=== PATIENT | female | born 1990 | race American Indian/Alaskan Native ===

== ENCOUNTER 2017-02-24 17:03 | Inpatient (IN) | payer MEDICAID ==
[2017-02-24] MEDS ORDERED: SUBLIMAZE IV PRN (17:12)
[2017-02-24] MEDS ORDERED: BRETHINE SUB-Q PRN (17:33)
[2017-02-24] MEDS ORDERED: BRETHINE IVP PRN (17:33)
[2017-02-24] MEDS ORDERED: XYLOCAINE 2% INFILTRATI ONE (17:33)
[2017-02-24] MEDS ORDERED: ePHEDrine SULFATE IV PRN (17:33)
--- NOTE | 2017-02-24 17:40 | History and Physical Report ---
History of Present Illness Date of examination: 02/24/17 Date of admission: 02/24/17 17:04 Chief complaint: Labor History of present illness: Pt is a 26yo BF EDC 02/21/17; EGA 40 3/7 weeks presents to L&D complaining of RUC's q 3-4 mins and Cx 8/100/V/-1. She received care at [facility] since 26 weeks and course has been unremarkable. records are available and GBS Negative. 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 History: herpes Social history: no significant social history, single - Obstetrical History Expected Date of Delivery: 02/21/17 Actual Gestation: 40 Week(s) 3 Day(s) Medications and Allergies Allergies Allergy/AdvReac Type Severity Reaction Status Date / Time No Known Allergies Allergy Unverified 02/24/17 17:10 Active Meds: Active Medications Ephedrine Sulfate (Ephedrine Sulfate) 10 mg IV Q2M PRN PRN Reason: Hypotension Fentanyl (Sublimaze) 100 mcg IV Q2H PRN PRN Reason: Labor Pain Lactated Ringer's (Lactated Ringers) 1,000 mls @ 125 mls/hr IV DIRECT WILLIAM Last Admin: 02/24/17 17:27 Dose: 125 mls/hr Oxytocin/Sodium Chloride (Pitocin/Ns 20 Unit/1000ml Drip) 20 units in 1,000 mls @ 0 mls/hr IV DIRECT WILLIAM PRN Reason: As Directed Review of Systems All systems: negative - Physical Exam Breasts: Positive: deferred Cardiovascular: Regular rate Lungs: Positive: Clear to auscultation Abdomen: Positive: normal appearance Genitourinary (Female): Positive: normal external genitalia Uterus: Positive: enlarged Extremities: Positive: normal - Obstetrical FHR: category 1 Uterine Contraction Monitor Mode: External Cervical Dilatation: 8 Cervical Effacement Percentage: 100 station: -1 Uterine Contraction Pattern: Regular Uterine Tone Measurement Phase: Contraction Uterine Contraction Intensity: Strong/Firm Results Result Diagrams: 02/24/17 17:15 All other labs normal. Assessment and Plan - Patient Problems (1) 40 weeks gestation of Onset Date: 02/24/17 Current Visit: Yes Status: Acute Plan to address problem: A: IUP @ 40 0/7 weeks in labor P: Admit to L&D for expectant vaginal delivery
[2017-02-24 17:43] LABS: Hematocrit 40.1 % (30.3-42.9); Hemoglobin 13.1 gm/dl (10.1-14.3); Mean Corpuscular HGB Conc 33 % (30-34); Mean Corpuscular Hemoglobin 29 pg (28-32); Mean Corpuscular Volume 89 fl (79-97); Platelet Count 287 K/mm3 (140-440); Red Blood Count 4.52 M/mm3 (3.65-5.03); Red Cell Distribution Width 13.1 % (13.2-15.2)
[2017-02-24] MEDS ORDERED: PITOCin/NS 30 UNIT/500ML 30 UNITS/500 ML BAG IV SCH (18:00)
[2017-02-24] MEDS ORDERED: PITOCin/NS 20 UNIT/1000ML DRIP 20 UNITS/1,000 ML BAG IV SCH ×3 (18:00→19:00)
[2017-02-24] MEDS ORDERED: LACTATED RINGERS 1,000 ML IV SCH ×2 (18:00)
--- NOTE | 2017-02-24 18:03 | Procedure Note ---
OB Delivery Note - Delivery Date of Delivery: 02/24/17 Surgeon: YRN CHING Estimated blood loss: 200cc - Vaginal Delivery presentation: vertex Delivery position: OA Intrapartum events: none Delivery induction: none Delivery augmentation: rupture of membranes Delivery monitor: external FHT, external uterine Route of delivery: Delivery placenta: spontaneous Delivery cord: 3 umbilical vessels Episiotomy: none Delivery laceration: none Anesthesia: none Delivery comments: Infant delivered OA and placed on Mom's chest for [id number] bonding and delayed cord clamping. - A at 1 minute: 8 at 5 minutes: 9 Infant Gender: Male (3087gms)
[2017-02-24] MEDS ORDERED: BENADRYL PO PRN (18:06)
[2017-02-24] MEDS ORDERED: TYLENOL PO PRN (18:06)
[2017-02-24] MEDS ORDERED: DULCOLAX PR PRN (18:06)
[2017-02-24] MEDS ORDERED: PHENERGAN PO PRN (18:06)
[2017-02-24] MEDS ORDERED: NORCO 5/325 PO PRN (18:06)
[2017-02-24] MEDS ORDERED: TUCKS PAD TP PRN (18:06)
[2017-02-24] MEDS ORDERED: PHENERGAN PR PRN (18:06)
[2017-02-24] MEDS ORDERED: MILK OF MAGNESIA PO PRN (18:06)
[2017-02-24] MEDS ORDERED: LANSINOH TP PRN (18:06)
[2017-02-24] MEDS ORDERED: ZOFRAN IV PRN (18:06)
[2017-02-24] MEDS ORDERED: SODIUM CHLORIDE FLUSH SYRINGE 10 ML IV NR (19:00)
[2017-02-24] MEDS: MOTRIN PO SCH (20:40)
[2017-02-24] MEDS ORDERED: MINERAL OIL PO PRN (22:00)
[2017-02-25] MEDS: MOTRIN PO SCH ×4 (02:20→23:59)
[2017-02-25 05:02] LABS: Hematocrit 33.8 % (30.3-42.9); Hemoglobin 11.3 gm/dl (10.1-14.3)
--- NOTE | 2017-02-25 08:41 | Progress Note ---
Assessment and Plan A: PPD 1 - Stable P: Continue routine PP orders Start depo provera 02/26/17 for PP contraception Discharge to home 02/26/17 Follow up in 6 weeks for PP exam Subjective - Subjective Date of service: 02/25/17 Principal diagnosis: Normal Spontanoeus Vaginal Delivery Patient reports: appetite normal, voiding normally, pain well controlled, ambulating normally : doing well, bottle feeding Objective - Vital Signs Latest vital signs: Vital Signs Temp Pulse Resp BP BP Pulse Ox 02/25/17 07:38 71 98 02/25/17 07:35 98.3 F 84 18 105/63 98 02/25/17 07:34 78 98 02/25/17 04:45 98.2 F 97 H 20 112/58 97 02/25/17 00:00 98.3 F 92 H 20 123/57 99 02/24/17 19:30 91 H 100 02/24/17 19:25 78 99 02/24/17 19:21 93 H 121/69 02/24/17 19:20 87 99 02/24/17 19:15 78 98 02/24/17 19:10 91 H 99 02/24/17 19:06 78 126/56 02/24/17 19:05 81 96 02/24/17 19:00 83 100 02/24/17 18:55 81 100 02/24/17 18:51 78 121/60 02/24/17 18:50 78 100 02/24/17 18:44 76 100 02/24/17 18:40 73 96 02/24/17 18:39 73 94 02/24/17 18:37 74 129/66 02/24/17 18:35 71 100 02/24/17 18:30 78 100 02/24/17 18:26 80 94 02/24/17 18:25 82 100 02/24/17 18:21 76 116/59 02/24/17 18:20 73 100 02/24/17 18:15 81 100 02/24/17 18:10 86 100 02/24/17 18:09 91 H 125/59 02/24/17 18:05 98.2 F 83 18 125/59 100 02/24/17 17:44 78 114/59 Intake and Output 02/24/17 02/25/17 02/25/17 23:59 07:59 15:59 Intake Total 240 1600 Output Total 600 400 Balance -360 1200 Intake: IV 1000 PITOCin/NS 20 UNIT/1000ML 1000 DRIP 20 units In 1,000 ml @ As Directed IV DIRECT [facility] Rx#:[id number] Oral 240 600 Output: Urine 600 400 Void 600 400 Other: Total, Intake Amount 240 240 Total, Output Amount 600 400 # Voids Void 1 Weight 82.1 kg Estimated Blood Loss 200 - Exam Cardiovascular: Present: Regular rate, Normal S1, Normal S2, No murmurs Lungs: Present: Clear to auscultation, Normal air movement Abdomen: Present: normal appearance, soft Vulva: both: normal Uterus: Present: normal, firm, fundal height below umbilicus Extremities: Present: normal Deep Tendon Reflex Grade: Normal +2 - Labs Labs: Abnormal lab results 02/24/17 Range/Units 17:15 WBC 11.4 H (4.5-11.0) K/mm3 RDW 13.1 L (13.2-15.2) %
--- NOTE | 2017-02-25 08:47 | Discharge Summary ---
Providers - Providers Date of Admission: 02/24/17 17:04 Date of discharge: 02/26/17 Attending physician: ARIEL MEJIA MD Primary care physician: ARIEL MEJIA MD Hospitalization Reason for admission: active labor, IUP at term Delivery: Episiotomy: none Laceration: none Other procedures: none complications: none Discharge diagnosis: IUP at term delivered [place] baby: male Hospital course: Uncomplicated Condition at discharge: Stable Disposition: MI-01 TO HOME OR SELFCARE - Discharge Diagnoses (1) Normal spontaneous vaginal delivery Status: Acute Plan - Provider Discharge Summary Activity: routine, no sex for 6 weeks, no heavy lifting 4 weeks, no strenuous exercise Diet: routine Instructions: routine Additional instructions: [] Smoking cessation referral if applicable(refer to patient education folder for contact #) [] Refer to [facility] Booklet Call your doctor immediately for: * Fever > 100.5 * Heavy vaginal bleeding ( >1 pad per hour) * Severe persistent headache * Shortness of breath * Reddened, hot, painful area to leg or breast * Drainage or odor from incision. * Keep incision clean and dry at all times and follow doctor's instructions regarding bathing/showering - Follow up plan Follow up: ARIEL MEJIA MD [Primary Care Provider] - 6 Weeks (Follow up in 6 weeks for PP exam )
[2017-02-25] MEDS: COLACE PO SCH ×2 (09:39→21:50)
[2017-02-25] MEDS: FEOSOL PO SCH ×2 (09:40→21:49)
[2017-02-25] MEDS ORDERED: PRENATAL VITAMIN PO SCH (10:00)
[2017-02-25] MEDS ORDERED: M-M-R II VACCINE SUB-Q ONE (18:06)
[2017-02-26] MEDS: MOTRIN PO SCH ×2 (05:35→12:46)
[2017-02-26] MEDS ORDERED: DEPO-PROVERA (CONTRACEPTION) IM NR ×2 (09:00→13:00)
[2017-02-26 09:11] VITALS: BP 106/62
[2017-02-26] MEDS: FEOSOL PO SCH (12:47)
[2017-02-26] MEDS: COLACE PO SCH (12:48)
== END 2017-02-26 19:06 | disposition home or self-care (01) | DRG 775 ==
LOC: TRG 17:03 → LD 17:04 → TRG 17:04 → OB 20:23
PROVIDERS: ADMIT Obstetrics & Gynecology; ATTEND Obstetrics & Gynecology
PROC: 10E0XZZ Delivery of Products of Conception, External Approach (ICD-10-PCS; principal; 2017-02-24)
PROC: 3E0234Z Introduction of Serum, Toxoid and Vaccine into Muscle, Percutaneous Approach (ICD-10-PCS; 2017-02-25)
DX: O80 Encounter for full-term uncomplicated delivery (principal); Z3A.40 40 weeks gestation of pregnancy; Z37.0 Single live birth; Z23 Encounter for immunization
CPT/HCPCS: 36415; 85014; 85018; 85027; 86592; 86850; 86900; 86901; J1050; J2590; J3010; J7120

== ENCOUNTER 2018-12-18 16:18 | Inpatient (IN) | payer OTHER ==
[2018-12-18] MEDS: LACTATED RINGERS 1,000 ML IV SCH ×2 (16:39→20:21)
[2018-12-18] MEDS ORDERED: SUBLIMAZE IV PRN (17:24)
[2018-12-18] MEDS ORDERED: BRETHINE SUB-Q PRN (17:24)
[2018-12-18] MEDS ORDERED: XYLOCAINE 2% INFILTRATI ONE (17:24)
--- NOTE | 2018-12-18 17:34 | History and Physical Report ---
History of Present Illness Date of examination: 12/18/18 Date of admission: 12/18/18 Chief complaint: Contractions History of present illness: 28 year old female presents to L&D in labor. Patient reports contractions started at 7 AM today. Denies LOF or VB. Reports active movement. Patient received care at [facility] and records are available. LMP 04/17/18. EDC 12/12/18 (based on US). 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 labs are as follows: O+, antibody screen negative, rubella immune, hepatitis B surface antigen negative, HIV negative, varicella immune, RPR nonreactive, HSV 2 positive, hemoglobin electrophoresis normal, gonorrhea negative, chlamydia negative, trichomonas negative, quad screen negative, 1 hour sugar test 134, GBS negative. 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 denies: abnormal PAP smear, chlamydia, gonorrhea, hepatitis B, hepatitis C, HIV, syphilis, trichomonas Family/Genetic History: none Social history: single, lives with family, full code. denies: smoking, alcohol abuse, prescription drug abuse, IV drug use - Obstetrical History Expected Date of Delivery: 12/12/18 Actual Gestation: 40 Week(s) 6 Day(s) : 3 Para: 2 Hx # Term Pregnancies: 2 Number of Pregnancies: 0 Spontaneous Abortions: 0 Induced : 0 Number of Living Children: 2 Medications and Allergies Allergies Allergy/AdvReac Type Severity Reaction Status Date / Time No Known Allergies Allergy Verified 12/18/18 16:23 Home Medications Medication Instructions Recorded Confirmed Last Taken Type No Known Home Medications [No 02/25/17 02/25/17 Unknown History Reported Home Medications] Active Meds: Active Medications Ephedrine Sulfate (Ephedrine Sulfate) 10 mg IV Q2M PRN PRN Reason: Hypotension Fentanyl (Sublimaze) 100 mcg IV Q2H PRN PRN Reason: Labor Pain Lactated Ringer's (Lactated Ringers) 1,000 mls @ 150 mls/hr IV DIRECT WILLIAM Last Admin: 12/18/18 16:39 Dose: 150 mls/hr Documented by: Oxytocin/Sodium Chloride (Pitocin/Ns 20 Unit/1000ml Drip) 20 units in 1,000 mls @ 125 mls/hr IV DIRECT WILLIAM Lactated Ringer's (Lactated Ringers) 1,000 mls @ 125 mls/hr IV DIRECT WILLIAM Lidocaine (Xylocaine 2%) 20 ml INFILTRATI ONCE ONE Stop: 12/18/18 17:25 Terbutaline Sulfate (Brethine) 0.25 mg SUB-Q ONCE PRN PRN Reason: Hyperstimulation/Hypertonicity Valacyclovir HCl (Valtrex) 500 mg PO BID WILLIAM Review of Systems All systems: negative (contractions) - Vital Signs Vital signs: Vital Signs Pulse BP 93 H 140/69 12/18/18 16:41 12/18/18 16:41 Temp Pulse Resp BP Pulse Ox 97.9 F 72 18 140/69 98 12/18/18 16:42 12/18/18 16:49 12/18/18 16:42 12/18/18 16:41 12/18/18 16:49 - Physical Exam Cardiovascular: Regular rate, Normal S1, Normal S2 Lungs: Positive: Clear to auscultation Abdomen: Positive: normal appearance, soft. Negative: distention, tenderness, guarding, rigidity Genitourinary (Female): Positive: normal external genitalia, normal perenium. Negative: perineal/vulvar lesions (no lesions seen on careful exam with bright light upon admission) Vagina: Positive: normal moisture Uterus: Positive: enlarged (S>D (US ordered for EFW)) Anus/Rectum: Positive: normal perianal skin Extremities: Positive: normal, edema (mild pedal edema). Negative: tenderness - Obstetrical FHR: category 2 FHR comments: Brief variable FHR decelerations with rapid return to baseline; normal baseline rate and moderate variability. Uterine Contraction Monitor Mode: External Cervical Dilatation: 5 Cervical Effacement Percentage: 80 station: -4 Uterine Contraction Pattern: Regular Uterine Contraction Intensity: Moderate Results Result Diagrams: 12/18/18 16:30 12/18/18 16:30 All other labs normal. Assessment and Plan A: at 40 weeks, 6 days gestation. Active labor. GBS negative. HSV 2 positive serology with no lesions or prodromal symptoms, on Valtrex suppression. P: Admit. Continuous EFM. Continue Valtrex for HSV suppression. EFW by US.
[2018-12-18 17:51] LABS: Hematocrit 35.8 % (30.3-42.9); Hemoglobin 11.9 gm/dl (10.1-14.3); Mean Corpuscular HGB Conc 33 % (30-34); Mean Corpuscular Volume 87 fl (79-97); Platelet Count 235 K/mm3 (140-440); Red Blood Count 4.14 M/mm3 (3.65-5.03); Red Cell Distribution Width 14.1 % (13.2-15.2)
[2018-12-18 18:13] LABS: Alanine Aminotransferase 11 units/L (7-56); BUN/Creatinine Ratio 15; Blood Urea Nitrogen 9 mg/dL (7-17); Calcium 8.7 mg/dL (8.4-10.2); Hemolysis Index 4
[2018-12-18 18:45] LABS: Uric Acid 4.9 mg/dL (3.5-7.6)
--- NOTE | 2018-12-18 20:10 | Ultrasound Report ---
ULTRASOUND OBSTETRIC INDICATION / CLINICAL INFORMATION: Estimated weight. TECHNIQUE: Transabdominal. COMPARISON: None available. FINDINGS: There is a single intrauterine . Biparietal Diameter = 9.12 cm = 37 weeks, 0 day(s). Head Circumference = 32.4 cm = 36 weeks, 5 day(s). Abdominal Circumference = 33.3 cm = 37 weeks, 1 day(s). Femur Length = 7.54 cm = 38 weeks, 4 day(s). Average Ultrasound Age (AUA) = 37 weeks, 2 day(s). Heart Rate: 154 beats per minute. Estimated Weight in grams (if calculated): 3206 Estimated Weight Growth Percentile (if calculated): Position: cephalic. Cervix: closed. Length in cm (if measured): Placenta: Fundal and free of the os. Amniotic Fluid Index (ESPERANZA) in cm (if calculated): 8.7. Maternal Adnexa: No significant abnormality. IMPRESSION: 1. Single, living intrauterine with estimated sonographic age of 37 weeks, 2 day(s). 2. No significant sonographic abnormality. Signer Name: Jude Guaman MD Signed: 12/18/2018 8:06 PM Workstation Name: [id number]
[2018-12-18] MEDS ORDERED: MARCAINE 0.25% INFILTRATI ONE (20:17)
[2018-12-18] MEDS ORDERED: NALOXONE IV PRN (20:20)
--- NOTE | 2018-12-18 20:22 | Anesthesia Consultation ---
Anesthesia Consult and Med Hx Date of service: 12/18/18 - Airway Anesthetic Teeth Evaluation: Good ROM Head & Neck: Adequate Mental/Hyoid Distance: Adequate Mallampati Class: Class II Intubation Access Assessment: Probably Good - Pulmonary Exam CTA: Yes - Cardiac Exam Cardiac Exam: RRR - Pre-Operative Health Status ASA Pre-Surgery Classification: ASA2 Proposed Anesthetic Plan: Epidural - Pulmonary Hx Smoking: No Hx Asthma: No Hx Respiratory Symptoms: No SOB: No COPD: No Home Oxygen Therapy: No Hx Pneumonia: No Hx Sleep Apnea: No - Cardiovascular System Hx Hypertension: No Hx Coronary Artery Disease: No Hx Heart Attack/AMI: No Hx Angina: No Hx Percutaneous Transluminal Coronary Angioplasty (PTCA): No Hx Cardia Arrhythmia: No Hx Pacemaker: No Hx Internal Defibrillator: No Hx Valvular Heart Disease: No Hx Heart Murmur: No Hx Peripheral Vascular Disease: No - Central Nervous System Hx Neuromuscular Disorder: No Hx Seizures: No CVA: No Hx Back Pain: No Hx Psychiatric Problems: No - Gastrointestinal Hx Ulcer: No Hx Gastroesophageal Reflux Disease: No - Endocrine Hx Renal Disease: No Hx End Stage Renal Disease: No Hx Cirrhosis: No Hx Liver Disease: No Hx Insulin Dependent Diabetes: No Hx Non-Insulin Dependent Diabetes: No Hx Thyroid Disease: No Hx Hypothyroidism: No Hx Hyperthyroidism: No - Hematic Hx Anemia: No Hx Sickle Cell Disease: No - Other Systems Hx Alcohol Use: No Hx Substance Use: No Hx Cancer: No Hx Obesity: Yes
[2018-12-18] MEDS ORDERED: ZOFRAN IV ONE (21:00)
[2018-12-18] MEDS: fentaNYL-BUPIV 2 MCG/ML-0.125% 200 MCG/100 ML BAG EPIDURAL SCH (22:14)
[2018-12-18] MEDS: VALTREX PO SCH (22:30)
--- NOTE | 2018-12-18 22:32 | Event Note ---
Date: 12/18/18 SVE /-3. Category 1 heart rate tracing. Will augment labor with Pitocin. Discussed with patient Pitocin augmentation of labor. Patient consented to Pitocin augmentation of labor.
[2018-12-18] MEDS ORDERED: PITOCin/NS 30 UNIT/500ML 30 UNITS/500 ML BAG IV SCH (23:00)
[2018-12-19] MEDS ORDERED: ZOFRAN IV ONE (01:59)
[2018-12-19] MEDS ORDERED: ZOFRAN ONE ×3 (02:02→14:42)
[2018-12-19] MEDS: LACTATED RINGERS 1,000 ML IV SCH ×2 (03:14→11:10)
--- NOTE | 2018-12-19 05:35 | Event Note ---
Date: 12/19/18 SVE 2.
[2018-12-19] MEDS: fentaNYL-BUPIV 2 MCG/ML-0.125% 200 MCG/100 ML BAG EPIDURAL SCH (06:16)
--- NOTE | 2018-12-19 07:57 | Event Note ---
Date: 12/19/18 SVE 7.5/90/-1. AROM with moderate amount of clear fluid to augment labor. Category 1 heart rate tracing. Vital signs stable.
[2018-12-19] MEDS ORDERED: ZOFRAN IV NR (08:40)
[2018-12-19] MEDS: VALTREX PO SCH (10:08)
[2018-12-19 10:32] LABS: Bacteria,Urine 1+ /HPF (Negative); Bilirubin,Urine NEG (Negative); Blood,Urine MOD (Negative); Color,Urine Amber (Yellow); Mucus,Urine 3+ /HPF
[2018-12-19] MEDS: PITOCin/NS 20 UNIT/1000ML DRIP 20 UNITS/1,000 ML BAG IV SCH ×2 (12:03→13:19)
[2018-12-19] MEDS ORDERED: ZOFRAN IV PRN (13:00)
[2018-12-19] MEDS ORDERED: LANSINOH TP PRN (13:58)
[2018-12-19] MEDS ORDERED: DERMOPLAST TP PRN (13:58)
[2018-12-19] MEDS ORDERED: MILK OF MAGNESIA PO PRN (13:58)
[2018-12-19] MEDS ORDERED: SODIUM CHLORIDE FLUSH SYRINGE 10 ML IV NR (14:00)
--- NOTE | 2018-12-19 14:19 | Procedure Note ---
OB Delivery Note - Delivery Date of Delivery: 12/19/18 Surgeon: JANAE HIGGINBOTHAM Estimated blood loss: 500cc - Vaginal Delivery presentation: vertex Delivery position: OA Intrapartum events: hemorrhage (manual removal of placenta, bleeding from episiotomy), shoulder dystocia Delivery augmentation: rupture of membranes, pitocin Delivery monitor: external FHT, external uterine Route of delivery: Delivery placenta: manual Delivery cord: 3 umbilical vessels Episiotomy: midline Delivery laceration: 2nd degree Delivery repair: vicryl Anesthesia: epidural Delivery comments: Spontaneous vaginal delivery at 11:43 of liveborn female infant weighing 8 lb. 14 oz. over second degree midline episiotomy with apgars of 6/9. Patient pushed for 3 contractions and delivered head; turtle sign noted upon delivery of head. Right anterior shoulder dystocia noted, taking 3 minutes to resolve. 2nd degree midline episiotomy cut. Kodak maneuver, suprapubic pressure, rotation of shoulders were performed and attempt was also made to deliver posterior arm. Posterior arm was stretched out fully alongside fetus and was not possible to deliver. Delivery was accomplished with combination of Kodak maneuver, suprapubic pressure, and rotation of shoulders to the oblique. 3 vessel cord immediately double clamped and cut after and baby taken to radiant warmer and NICU team for evaluation. Spontaneous cry and respirations. Baby moving all extremities well. Cord blood obained. Gush of blood noted with separation of xavier centa; manual removal of placenta performed at 12:00 due to the bleeding noted at time of placental separation. Fundus massaged; Pitocin to IV fluids. Fundus firmed and was noted to be midline. EBL 500 cc. 2nd degree midline episiotomy repaired with 2-0 and 3-0 vicryl in usual sterile fashion. Vaginal laceration repaired with 2-0 vicryl. No other lacerations noted. Sponge count correct; sharp count correct. Vaginal sweep negative. Mother and baby stable in birthing room. Stat H&H ordered due to total estimated blood loss of 500 cc. Antibiotic ordered due to manual removal of placenta.
[2018-12-19 15:28] LABS: Hematocrit 34.6 % (30.3-42.9); Hemoglobin 11.1 gm/dl (10.1-14.3)
[2018-12-19] MEDS: CLEOCIN 900 MG/50 mL 900 MG/50 ML BAG IV SCH ×2 (15:56→22:11)
[2018-12-19] MEDS: PRENATAL VITAMIN PO SCH (16:11)
[2018-12-19] MEDS: IBUPROFEN PO SCH ×2 (16:11→19:53)
[2018-12-19] MEDS: TUCKS PAD TP PRN (19:53)
[2018-12-19] MEDS: COLACE PO SCH (22:11)
[2018-12-19] MEDS: FEOSOL PO SCH (22:11)
[2018-12-19] MEDS: NORCO 5/325 PO PRN (22:11)
[2018-12-20] MEDS: IBUPROFEN PO SCH ×4 (02:17→21:02)
[2018-12-20] MEDS: NORCO 5/325 PO PRN ×3 (06:33→18:34)
[2018-12-20] MEDS: CLEOCIN 900 MG/50 mL 900 MG/50 ML BAG IV SCH (06:35)
[2018-12-20 06:38] LABS: Hematocrit 25.3 % (30.3-42.9); Hemoglobin 8.5 gm/dl (10.1-14.3)
[2018-12-20] MEDS: FEOSOL PO SCH ×2 (10:26→21:02)
[2018-12-20] MEDS: COLACE PO SCH ×2 (10:26→21:02)
[2018-12-20] MEDS: PRENATAL VITAMIN PO SCH (10:26)
--- NOTE | 2018-12-20 12:45 | Progress Note ---
Assessment and Plan A: day 1 S/P spontaneous vaginal delivery. Anemia secondary to and blood loss. P: Continue current management and iron supplementation. Subjective - Subjective Date of service: 12/20/18 Principal diagnosis: day 1 S/P Interval history: day 1 S/P spontaneous vaginal delivery. Doing well. Patient reports a small amount of lochia. Voiding without difficulty, ambulating well, tolerating a regular diet without nausea or vomiting. Patient denies headache, chest pain, cough, shortness of breath, leg pain, abdominal pain, or heavy bleeding. Patient reports: appetite normal, voiding normally, pain well controlled, ambulating normally, no dizzy ambulation, no flatus, no nauseated : doing well Objective - Vital Signs Latest vital signs: Vital Signs Temp Pulse Resp BP BP Pulse Ox 12/20/18 08:05 97.6 F 87 20 111/70 99 12/20/18 04:56 98.1 F 87 20 111/71 99 12/19/18 23:34 98.0 F 99 H 20 103/52 99 12/19/18 20:36 98.0 F 96 H 20 115/63 99 12/19/18 17:40 97.6 F 86 16 121/78 98 12/19/18 16:22 94 H 100 12/19/18 16:17 97 H 100 12/19/18 16:12 101 H 100 12/19/18 16:10 107 H 112/57 12/19/18 16:09 98.6 F 95 H 18 118/57 100 12/19/18 16:08 92 H 118/57 12/19/18 16:07 92 H 100 12/19/18 13:41 101 H 128/74 12/19/18 13:29 80 123/89 12/19/18 13:25 97.8 F 80 18 123/89 Intake and Output 12/19/18 12/20/18 12/20/18 23:59 07:59 15:59 Intake Total 340 120 360 Output Total 100 800 Balance 240 -680 360 Intake: IV 100 CLEOCIN 900 MG/50 mL 900 100 mg In 50 ml @ 100 mls/hr IV Q8H [facility] Rx#:[id number] Oral 240 120 360 Output: Urine 100 800 Void 100 800 Other: Total, Intake Amount 240 120 360 Total, Output Amount 100 800 # Voids Void 2 1 - Exam Narrative Exam: Perineal sutures intact; no edema or bruising. Cardiovascular: Present: Regular rate, Normal S1, Normal S2, No murmurs Lungs: Present: Clear to auscultation Abdomen: Present: normal appearance, soft. Absent: distention, tenderness, guarding, rigidity Uterus: Present: normal, firm, fundal height below umbilicus. Absent: bogginess, tenderness Extremities: Present: normal. Absent: tenderness, edema - Labs Labs: Abnormal lab results 12/20/18 Range/Units 05:52 Hgb 8.5 L (10.1-14.3) gm/dl Hct 25.3 L D (30.3-42.9) %
[2018-12-21] MEDS: IBUPROFEN PO SCH ×2 (06:10→14:30)
[2018-12-21] MEDS: TUCKS PAD TP PRN (09:06)
[2018-12-21] MEDS: COLACE PO SCH (09:44)
[2018-12-21] MEDS: FEOSOL PO SCH (09:44)
[2018-12-21] MEDS: PRENATAL VITAMIN PO SCH (09:44)
--- NOTE | 2018-12-21 10:36 | Progress Note ---
Assessment and Plan - Patient Problems (1) Status post normal vaginal delivery Current Visit: Yes Status: Acute Plan to address problem: PPD 2 - stable Discharge to home today Follow-up at [facility] as needed or in 6 weeks for exam (2) Anemia due to blood loss, acute Current Visit: Yes Status: Acute Plan to address problem: Asymptomatic Continue iron therapy (3) Discomfort at episiotomy site Current Visit: Yes Status: Acute Plan to address problem: Well-approximated Continue TUCKS PADS and Dermoplast Encouraged sitz baths Subjective - Subjective Date of service: 12/21/18 Principal diagnosis: PPD #2; s/p Interval history: see H&P, Event Notes, OB Delivery Procedure Note and PP/GROUP HOME PARAPROFESSIONAL Progress Note Patient reports: appetite normal, voiding normally, pain well controlled, ambulating normally, no dizzy ambulation, no bowel movement [place]: doing well, other (breast and bottle feeding) Objective - Vital Signs Latest vital signs: Vital Signs Temp Pulse Resp BP Pulse Ox 12/21/18 08:54 98.2 F 86 18 106/56 98 12/21/18 07:10 18 12/21/18 06:10 18 12/20/18 23:17 97.8 F 84 18 112/57 98 12/20/18 22:02 18 12/20/18 21:02 18 12/20/18 19:34 18 12/20/18 16:29 98.2 F 97 H 20 109/67 97 Intake and Output 12/20/18 12/21/18 12/21/18 23:59 07:59 15:59 Intake Total 240 840 Balance 240 840 Intake: Oral 240 Intake, Free Water 840 Other: Total, Intake Amount 240 # Voids Void 1 1 - Exam Cardiovascular: Present: Regular rate Lungs: Present: Clear to auscultation Abdomen: Present: normal appearance, soft Vulva: both: normal Uterus: Present: normal, firm, fundal height below umbilicus Extremities: Present: normal Comments: scant lochia
--- NOTE | 2018-12-21 10:41 | Discharge Summary ---
Providers - Providers Date of Admission: 12/18/18 16:19 Date of discharge: 12/21/18 Attending physician: RASHEEDA MARTIN MD Primary care physician: RASHEEDA MARTIN MD Hospitalization Reason for admission: active labor, IUP at term Delivery: Episiotomy: midline (2nd degree) Laceration: none Other procedures: none complications: none Discharge diagnosis: IUP at term delivered [place] baby: female Hospital course: Uncomplicated Condition at discharge: Stable Disposition: DC-01 TO HOME OR SELFCARE - Discharge Diagnoses (1) Status post normal vaginal delivery Status: Acute (2) Anemia due to blood loss, acute Status: Acute Comment: Asymptomatic Continue iron therapy Encouraged iron-rich foods (3) Discomfort at episiotomy site Status: Acute Comment: Continue TUCKS PADS and Dermoplast Discharge home on Ibuprofen as needed for pain and Colace as needed for constipation Encouraged Sitz baths Plan - Discharge Medications Prescriptions: Docusate Sodium [Colace CAP] 100 mg PO BID PRN #30 capsule PRN Reason: Constipation Ibuprofen [Motrin 600 MG tab] 600 mg PO Q6H #30 tablet - Provider Discharge Summary Activity: routine, no sex for 6 weeks, no heavy lifting 4 weeks, no strenuous exercise Diet: routine Instructions: routine Additional instructions: [] Smoking cessation referral if applicable(refer to patient education folder for contact #) [] Refer to [facility] Booklet Call your doctor immediately for: * Fever > 100.5 * Heavy vaginal bleeding ( >1 pad per hour) * Severe persistent headache * Shortness of breath * Reddened, hot, painful area to leg or breast * Drainage or odor from incision. * Keep incision clean and dry at all times and follow doctor's instructions regarding bathing/showering - Follow up plan Follow up: RASHEEDA MARTIN MD [Primary Care Provider] - 6 Weeks (Follow-up at [facility] as needed or in 6 weeks for exam)
[2018-12-21 17:25] VITALS: BP 117/59
== END 2018-12-21 15:00 | disposition home or self-care (01) | DRG 806 ==
LOC: TRG 16:18 → LD 16:19 → TRG 16:19 → LD 16:53 → OB 12-19 18:18
PROVIDERS: ADMIT Obstetrics & Gynecology; ATTEND Obstetrics & Gynecology
PROC: 10E0XZZ Delivery of Products of Conception, External Approach (ICD-10-PCS; principal; 2018-12-19)
PROC: 0KQM0ZZ Repair Perineum Muscle, Open Approach (ICD-10-PCS; 2018-12-19)
PROC: 10907ZC Drainage of Amniotic Fluid, Therapeutic from Products of Conception, Via Natural or Artificial Opening (ICD-10-PCS; 2018-12-19)
PROC: 0W8NXZZ Division of Female Perineum, External Approach (ICD-10-PCS; 2018-12-19)
PROC: 3E0R3BZ Introduction of Anesthetic Agent into Spinal Canal, Percutaneous Approach (ICD-10-PCS; 2018-12-19)
PROC: 00HU33Z Insertion of Infusion Device into Spinal Canal, Percutaneous Approach (ICD-10-PCS; 2018-12-19)
DX: O66.0 Obstructed labor due to shoulder dystocia (principal); D62 Acute posthemorrhagic anemia; Z37.0 Single live birth; O72.1 Other immediate postpartum hemorrhage; Z3A.40 40 weeks gestation of pregnancy; O70.1 Second degree perineal laceration during delivery; O90.81 Anemia of the puerperium; O99.214 Obesity complicating childbirth
CPT/HCPCS: 36415; 76816; 80053; 81001; 83615; 84550; 85014; 85018; 85027; 86592; 86850; 86900; 86901; 87086; 88307; G0378; J2405; J2590; J7120

== ENCOUNTER 2021-03-29 16:08 | Outpatient (CLI) | payer MEDICAID ==
[2021-03-29] MEDS ORDERED: LACTATED RINGERS 500 ML IV ONE (16:44)
[2021-03-29] MEDS ORDERED: LACTATED RINGERS 1,000 ML IV SCH (16:45)
[2021-03-29 16:54] VITALS: BP 118/75
[2021-03-29 17:13] LABS: Bacteria,Urine 1+ /HPF (Negative)
[2021-03-29 17:24] LABS: Bilirubin,Urine NEG (Negative); Blood,Urine NEG (Negative); Color,Urine Yellow (Yellow); Mucus,Urine FEW /HPF
[2021-03-29] MEDS ORDERED: ACETAMINOPHEN 500 MG TAB PO ONE (17:43)
[2021-03-29 18:26] LABS: Amphetamine Screen,Urine Negative; Benzodiazepines Screen,Urine Negative; Cannabinoid Screen,Urine Negative; Cocaine Screen,Urine Negative; Methadone Screen,Urine Negative; Opiate Screen,Urine Negative
[2021-03-29 18:33] LABS: Hematocrit 33.5 % (30.3-42.9); Mean Corpuscular HGB Conc 33 % (30-34); Mean Corpuscular Volume 86 fl (79-97); Platelet Count 300 K/mm3 (140-440); Red Blood Count 3.88 M/mm3 (3.65-5.03); Red Cell Distribution Width 13.7 % (13.2-15.2)
[2021-03-29 18:56] LABS: Alanine Aminotransferase 19 units/L (7-56); Albumin 3.4 g/dL (3.9-5); Blood Urea Nitrogen 4 mg/dL (7-17); Calcium 9.4 mg/dL (8.4-10.2); Hemolysis Index 58
[2021-03-29 19:00] LABS: BUN/Creatinine Ratio 8
== END 2021-03-29 19:23 | disposition home or self-care (01) ==
LOC: TRG 16:08 → APU 16:11 → TRG 19:23
PROVIDERS: ATTEND Obstetrics & Gynecology
DX: O62.9 Abnormality of forces of labor, unspecified (principal); Z3A.28 28 weeks gestation of pregnancy
CPT/HCPCS: 36415; 59025; 80053; 80307; 81001; 85027; 96360; 96361; J7120

== ENCOUNTER 2021-07-08 16:24 | Outpatient (CLI) | payer MEDICAID ==
[2021-07-08 17:07] VITALS: BP 119/69
[2021-07-08] MEDS ORDERED: LACTATED RINGERS 1,000 ML IV ONE (21:14)
--- NOTE | 2021-07-08 23:27 | Ultrasound Report ---
ULTRASOUND OBSTETRIC LIMITED ULTRASOUND BIOPHYSICAL PROFILE INDICATION / CLINICAL INFORMATION: BPP. Clinical Gestational Age (GA) in weeks, days: 30, 3 TECHNIQUE: Transabdominal. COMPARISON: None available. FINDINGS: BREATHING MOVEMENT = 2 GROSS BODY MOVEMENT = 2 TONE = 2 QUALITATIVE AMNIOTIC FLUID VOLUME = 2 TOTAL BIOPHYSICAL SCORE = 8/8 HEART RATE (beats per minute): 139 AMNIOTIC FLUID INDEX (cm) = 8.5 (normal = 7-24 cm) PRESENTATION: Cephalic. ADDITIONAL FINDINGS: None. IMPRESSION: 1. Biophysical Score = 8/8 Signer Name: Ronaldo Prakash DO Signed: 07/08/2021 11:22 PM Workstation Name: [id number] [email or web address] [id number]
[2021-07-09] LABS: Bilirubin,Urine NEG (Negative); Blood,Urine NEG (Negative); Color,Urine Amber (Yellow); WBC,Urine < 1.0 /HPF (0.0-6.0)
== END 2021-07-09 01:08 | disposition home or self-care (01) ==
LOC: TRG 16:24 → APU 16:24 → TRG 07-09 01:08
PROVIDERS: ATTEND Obstetrics & Gynecology
DX: O62.9 Abnormality of forces of labor, unspecified (principal); O99.213 Obesity complicating pregnancy, third trimester; E66.9 Obesity, unspecified; Z3A.38 38 weeks gestation of pregnancy
CPT/HCPCS: 36415; 76815; 76819; 81001; 84112; 96360; J7120